=== PATIENT | male | born 2000 | race African-American/Black ===

== ENCOUNTER 2024-02-21 20:11 | Emergency (ER) | payer SELFPAY ==
[2024-02-21 20:12] VITALS: BP 184/118
--- NOTE | 2024-02-21 21:48 | ED.SKININJ ---
HPI-Injury
General
Chief Complaint: Eye Problems
Source: patient
Exam Limitations: none
Time Seen by Provider: 02/21/24 21:01
Travel History
Have you had any contact with someone who has COVID-19?: No
Do you have any symptoms of coronavirus? Fever > 100 degrees, chills, cough, shortness of breath, sore throat, loss of taste or smell, muscle aches, or headache?: No
History of Present Illness-Injury
Initial Injury comments:
23-year-old male presents with small piece of metal in the eye. This happened while at work earlier today. He notes irritation. No other complaints at this time. He denies blurry vision
Phy Exam
Physical Exam
Physical Exam:
General: Well-appearing male no acute respiratory distress
HEENT left eye examined with fluorescein stain and a slit lamp. There is a small metallic foreign body noted just to the left of midline of the cornea. The lids were everted. There is irritation of the upper eyelid. No obvious foreign bodies
otherwise in the lids.
Skin: Surrounding skin is without erythema
Course
Vital Signs
Initial and Last Documented VS:
Initial Vital Signs
Temp Pulse Resp BP Pulse Ox
98.1 F 98 19 184/118 97
02/21/24 20:12 02/21/24 20:12 02/21/24 20:12 02/21/24 20:12 02/21/24 20:12
Last Documented Vital Signs
Temp Pulse Resp BP Pulse Ox
98.1 F 98 19 184/118 97
02/21/24 20:12 02/21/24 20:12 02/21/24 20:12 02/21/24 20:12 02/21/24 20:12
MDM/Problems Addressed
Differential Diagnosis Includes:
Foreign body left eye. Attempt was made to remove the foreign body with a moistened cotton swab however this was unsuccessful. The bur was used to remove the foreign body subsequently. Patient tolerated this well. The eye was reexamined with a
slit lamp and there was no further rust noticed. Patient was started on gentamicin drops and will be advised follow-up with eye doctor for further evaluation
*Critical Care Note
Total Time (30-74mins, 75-104mins- exclusive of procedures): Not Applicable
ED Attending Note
-
Portions of this chart may have been created with voice recognition software.� Occasional wrong word or��sound alike� substitutions may have occurred due to the inherent limitations of voice recognition software.
Discharge Plan
Departure
Patient Disposition: Home (Routine Discharge)
Date of Disposition: 02/21/24
Time of Disposition: 21:50
Patient with high blood pressure during this ER visit?: No
Discharge Problem:
Foreign body, eye
Instructions: Foreign Body in Eye (DC)
Referrals:
NONE,* [Family Provider] -
Arcadio Berger MD [Active] -
Activity Restrictions/Additional Instructions:
Use 1 drop into the left eye every 4 hours. You may use cool compresses. Return if worse otherwise follow-up with eye doctor
Interventions
Interventions:
*Risk Screen - Suicide Last Done: 02/21/24 20:12
*General Assessment Last Done: 02/21/24 20:12
*Neglect/Abuse Screening Last Done: 02/21/24 20:12
ED- Fall Risk Assessment Last Done: 02/21/24 21:32
Discharge Date and Time
Print Language: [id number]
[2024-02-21] MEDS: GENOPTIC 0.3% EYE DROPS 1 DROP OPHTH (22:00)
[2024-02-21 22:01] VITALS: BP 167/77
== END 2024-02-21 22:02 | disposition home or self-care (01) ==
LOC: EMR 20:11
PROVIDERS: EMERGENCY PHYSICIAN Emergency Medicine
DX: T15.02XA Foreign body in cornea, left eye, initial encounter (principal); W44.D0XA Magnetic metal object unspecified, entering into or through a natural orifice, initial encounter
CPT/HCPCS: 99282